=== PATIENT | female | born 1945 | race African-American/Black ===

== ENCOUNTER → 2016-02-14 | Outpatient (CLI) | payer MEDICARE, OTHER ==
--- NOTE | 2016-02-14 13:56 | MM ---
Reason for exam: clinical finding. Last mammogram was performed 1 year and 7 months ago. History: Patient is postmenopausal and has history of endometrial cancer at age 31. Family history of breast cancer in mother at age 57. Took hormonal contraceptives for 1 year beginning at age 20. Indicated problem(s): pain in the right breast. Physical Findings: Nurse did not find any significant physical abnormalities on exam. MG 3D Diag Mammo W/Cad SHERIE Bilateral CC and MLO view(s) were taken. Prior study comparison: July 16, 2014, bilateral MG diagnostic mammo w CAD SHERIE. December 18, 2013, bilateral MG screening mammo w CAD. There are scattered fibroglandular densities. No significant new findings when compared with previous films. These results were verbally communicated with the patient and result sheet given to the patient on 02/14/16. ASSESSMENT: Negative, BI-RAD 1 RECOMMENDATION: Routine screening mammogram of both breasts in 1 year. Manage patient on a clinical basis.
--- NOTE | 2016-02-17 11:53 | US ---
EXAMINATION TYPE: US axilla extremity RT DATE OF EXAM: 02/14/2016 1:32 PM COMPARISON: NONE CLINICAL HISTORY: US. Pain right axilla Findings: Multiple hypoechoic nodules noted within right axilla , largest = 4.5cm majority have hyper echoic central hilum. Most likely related to lymph node. IMPRESSION: 1. Multiple small hypoechoic nodules are nonspecific but likely related to lymph nodes. Correlate wit h CT of the chest as clinically warranted.
== END | disposition home or self-care (01) ==
LOC: RADMAMWWP 12:47
PROVIDERS: ATTEND Family Medicine
DX: N64.4 Mastodynia (principal); M79.621 Pain in right upper arm
CPT/HCPCS: 76882; G0204; G0279

== ENCOUNTER → 2016-02-15 | Outpatient (CLI) | payer MEDICARE, OTHER ==
[2016-02-15 14:23] LABS: ALT 32 U/L (9-52); AST 26 U/L (14-36); Alkaline Phosphatase 89 U/L (38-126); Anion Gap 12 mmol/L; Blood Urea Nitrogen 17 mg/dL (7-17); Carbon Dioxide 30 mmol/L (22-30); Chloride 100 mmol/L (98-107); Glucose 105 mg/dL (74-99); Non-African American GFR(MDRD) >60 (>60 ml/min/1.73 sqM); Phosphorous 3.7 mg/dL (2.5-4.5); Potassium 4.3 mmol/L (3.5-5.1); Sodium 142 mmol/L (137-145); Total Bilirubin 0.7 mg/dL (0.2-1.3)
== END | disposition home or self-care (01) ==
LOC: LABWHC1 13:08
PROVIDERS: ATTEND Internal Medicine
DX: I10 Essential (primary) hypertension (principal); E55.9 Vitamin D deficiency, unspecified
CPT/HCPCS: 36415; 80053; 82306; 83735; 84100

== ENCOUNTER → 2016-02-15 | Outpatient (CLI) | payer MEDICARE, OTHER ==
--- NOTE | 2016-02-15 14:23 | XR ---
EXAMINATION TYPE: XR chest 2V DATE OF EXAM: 02/15/2016 1:54 PM HISTORY: Chest pain. REFERENCE: Previous study dated 01/04/2016. FINDINGS: The lungs are clear. Pleural spaces are clear. Heart size is normal. IMPRESSION: NORMAL CHEST.
== END | disposition home or self-care (01) ==
LOC: RADXRMAIN 13:24
PROVIDERS: ATTEND Family Medicine
DX: R07.89 Other chest pain (principal)
CPT/HCPCS: 71020

== ENCOUNTER → 2016-03-23 | Outpatient (CLI) | payer MEDICARE, OTHER ==
[2016-03-26 15:01] LABS: Hepatits C Virus RNA, Quant <12 IU/mL (<12); LOG HCV IU/mL <1.08 (<1.08)
== END | disposition home or self-care (01) ==
LOC: LABWHC1 09:28
PROVIDERS: ATTEND Physician Assistant
DX: B18.2 Chronic viral hepatitis C (principal)
CPT/HCPCS: 36415; 87522

== ENCOUNTER → 2016-03-27 | Outpatient (CLI) | payer MEDICARE, OTHER ==
[2016-03-27 07:26] LABS: Bilirubin, Delta 0.2 mg/dL (0.0-0.2); Total Bilirubin 0.5 mg/dL (0.2-1.3); Total Protein 7.6 g/dL (6.3-8.2)
== END | disposition home or self-care (01) ==
LOC: LABWHC1 07:02
PROVIDERS: ATTEND Physician Assistant
DX: B18.2 Chronic viral hepatitis C (principal)
CPT/HCPCS: 36415; 80076

== ENCOUNTER 2016-03-28 11:07 | Day surgery (SDC) | payer MEDICARE, OTHER ==
[2016-03-28 11:57] VITALS: BP 124/64; PULSE 65; RESP 20; TEMP 97.4
--- NOTE | 2016-03-28 13:42 | US ---
Discontinued needle biopsy HISTORY: Axillary pain, adenopathy. Correlation to prior ultrasound axilla February 2016 Patient's prior ultrasound was reviewed, no evident adenopathy, small benign-appearing lymph nodes ar e present in the right axilla. No axillary adenopathy is evident. Patient states her pain has improved. ASSESSMENT: Benign nodes. Improvement in her pain Recommendation: Follow-up clinically, consider follow-up ultrasound to assess for any interval change in patient's axillary nodes.
== END 2016-03-28 11:50 | disposition home or self-care (01) ==
LOC: RADPROMAIN 11:07
PROVIDERS: ATTEND Surgery
DX: R59.0 Localized enlarged lymph nodes (principal); M79.629 Pain in unspecified upper arm
CPT/HCPCS: 76536

== ENCOUNTER → 2016-08-17 | Outpatient (CLI) | payer MEDICARE, OTHER ==
[2016-08-17 13:55] LABS: ALT 22 U/L (9-52); AST 25 U/L (14-36); Alkaline Phosphatase 70 U/L (38-126); Anion Gap 9 mmol/L; Blood Urea Nitrogen 19 mg/dL (7-17); Calcium 9.9 mg/dL (8.4-10.2); Carbon Dioxide 26 mmol/L (22-30); Chloride 105 mmol/L (98-107); Glucose 91 mg/dL (74-99); Magnesium 2.1 mg/dL (1.6-2.3); Non-African American GFR(MDRD) >60 (>60 ml/min/1.73 sqM); Phosphorous 3.3 mg/dL (2.5-4.5); Potassium 4.2 mmol/L (3.5-5.1); Sodium 140 mmol/L (137-145); Total Bilirubin 0.8 mg/dL (0.2-1.3); Total Protein 7.6 g/dL (6.3-8.2); Uric Acid 8.4 mg/dL (3.7-7.4)
[2016-08-17 14:20] LABS: Appearance,Urine Clear (Clear); Bilirubin,Urine Negative (Negative); Glucose,Urine (UA) Negative (Negative); Ketones,Urine Negative (Negative); Leukocyte Esterase,Urine Large (Negative); Nitrite,Urine Negative (Negative); PH, Urine 7.5 (5.0-8.0); Particle Count 1714; Protein,Urine Negative (Negative); RBC,Urine 1 /hpf (0-5); Specific Gravity,Urine 1.008 (1.001-1.035); Squamous Epithelial Cell,Urine 2 /hpf (0-4); UA Billing (MACRO vs. MICRO) MICRO; Urobilinogen,Urine <2.0 mg/dL (<2.0); WBC,Urine 1 /hpf (0-5)
== END | disposition home or self-care (01) ==
LOC: LABWHC1 12:58
PROVIDERS: ATTEND Internal Medicine
DX: I10 Essential (primary) hypertension (principal); N39.0 Urinary tract infection, site not specified; E21.3 Hyperparathyroidism, unspecified; E55.9 Vitamin D deficiency, unspecified; M10.9 Gout, unspecified
CPT/HCPCS: 36415; 80053; 81001; 82306; 83735; 83970; 84100; 84550; 87086

== ENCOUNTER → 2016-09-12 | Outpatient (CLI) | payer MEDICARE, OTHER ==
[2016-09-12 10:40] LABS: Bilirubin, Delta 0.2 mg/dL (0.0-0.2); Total Bilirubin 0.7 mg/dL (0.2-1.3); Total Protein 7.4 g/dL (6.3-8.2)
[2016-09-13 15:23] LABS: Hepatits C Virus RNA, Quant <12 IU/mL (<12); LOG HCV IU/mL <1.08 (<1.08)
== END | disposition home or self-care (01) ==
LOC: LABWHC1 09:14
PROVIDERS: ATTEND Physician Assistant
DX: B18.2 Chronic viral hepatitis C (principal)
CPT/HCPCS: 36415; 80076; 87522

== ENCOUNTER → 2016-09-19 | Outpatient (CLI) | payer MEDICARE, OTHER ==
--- NOTE | 2016-09-19 12:28 | XR ---
EXAMINATION TYPE: XR ankle complete LT DATE OF EXAM: 09/19/2016 COMPARISON: NONE HISTORY: Pain FINDINGS: Three views of the ankle demonstrate the ankle mortise to be intact and symmetric. Diffuse osteopenia noted. There is hypertrophic change is seen. Soft tissue edema noted. Calcaneal spurs are seen. Narr owing of the subtalar joint noted. IMPRESSION: 1. No definite acute fracture or dislocation, if symptoms persist follow-up study in 7 to 10 days wou ld be suggested. 2. Arthropathy of the subtalar joint. Correlate with MRI as clinically warranted.
== END | disposition home or self-care (01) ==
LOC: RADXRMAIN 11:46
PROVIDERS: ATTEND Physician Assistant
DX: M13.872 Other specified arthritis, left ankle and foot (principal)

== ENCOUNTER 2017-03-25 08:40 | Emergency (ER) | payer MEDICARE, OTHER ==
[2017-03-25 08:46] VITALS: BP 173/74; PULSE 68; RESP 18; TEMP 97.3
[2017-03-25] MEDS ORDERED: KETOROLAC 30 MG/ML 1 ML VIAL IM STA (09:03)
--- NOTE | 2017-03-25 09:07 | ED ---
General Adult HPI - General Source: patient, RN notes reviewed Mode of arrival: ambulatory Limitations: no limitations <Day Nicholas - Last Filed: 03/25/17 09:38> <Hari Sullivan - Last Filed: 03/25/17 09:44> - General Chief complaint: Extremity Problem,Nontraumatic Stated complaint: LEFT SIDE PAIN Time Seen by Provider: 03/25/17 08:58 - History of Present Illness Initial comments: 71 yo female presents to the ER with cc of left-sided hip pain. Patient states she's had this for about 3 weeks. It starts in her low by Dr. chandler brown and radiates into the left hip. There is no numbness and tingling. Patient states just feels sore. She does have arthritis everywhere and she states the chest is more intense. She denies any falls traumas or injuries to the hip. She denies a loss by bladder function she denies any saddle anesthesia. She states she was concerned due to just the continued aching type pain so she thought that she should be seen. She is able to move the hip she is able to walk like normal. She has a redness or irritation of the skin. Patient denies any recent fever, chills, shortness of breath, chest pain, back pain, abdominal pain, nausea vomiting, numbness or tingling, dysuria or hematuria, constipation or diarrhea, headaches or visual changes, or any other current symptoms. (Day Nicholas) - Related Data Home Medications Medication Instructions Recorded Confirmed Metoprolol Tartrate [Metoprolol 25 mg PO BID 07/13/14 03/25/17 Tartrate] Cholecalciferol [Vitamin D3] 2,000 unit PO DAILY 10/20/15 03/25/17 Hydrochlorothiazide [Hydrodiuril] 25 mg PO DAILY 03/20/16 03/25/17 Calcium Carbonate 500 mg PO BID 03/25/17 03/25/17 Lisinopril [Zestril] 5 mg PO DAILY 03/25/17 03/25/17 Previous Rx's Medication Instructions Recorded traMADol HCl [Ultram] 50 mg PO Q6H PRN #10 tab 03/25/17 Allergies Allergy/AdvReac Type Severity Reaction Status Date / Time Penicillins Allergy Rash/Hives Verified 03/25/17 08:55 Review of Systems ROS Other: All systems not noted in ROS Statement are negative. <Day Nicholas - Last Filed: 03/25/17 09:38> ROS Other: All systems not noted in ROS Statement are negative. <Hari Sullivan - Last Filed: 03/25/17 09:44> ROS Statement: Those systems with pertinent positive or pertinent negative responses have been documented in the HPI. Past Medical History Past Medical History: Hypertension Additional Past Medical History / Comment(s): hep c RECEIVED TREATMENT - states cleared, kidney stones History of Any Multi-Drug Resistant Organisms: None Reported Past Surgical History: Bladder Surgery, Hysterectomy, Tonsillectomy Additional Past Surgical History / Comment(s): eye surgery Past Anesthesia/Blood Transfusion Reactions: No Reported Reaction Past Psychological History: No Psychological Hx Reported Smoking Status: Former smoker Past Alcohol Use History: None Reported Past Drug Use History: None Reported - Past Family History Mother Family Medical History: Cancer Additional Family Medical History / Comment(s): breast cancer, brother lymphoma <Day Nicholas - Last Filed: 03/25/17 09:38> General Exam Limitations: no limitations General appearance: alert, in no apparent distress Head exam: Present: atraumatic, normocephalic, normal inspection Neck exam: Present: normal inspection. Absent: tenderness, meningismus, lymphadenopathy Respiratory exam: Present: normal lung sounds bilaterally. Absent: respiratory distress, wheezes, rales, rhonchi, stridor Cardiovascular Exam: Present: regular rate, normal rhythm, normal heart sounds. Absent: systolic murmur, diastolic murmur, rubs, gallop, clicks GI/Abdominal exam: Present: soft, normal bowel sounds. Absent: distended, tenderness, guarding, rebound, rigid Extremities exam: Present: normal inspection, full ROM, tenderness (Minimal to the left posterior hip), normal capillary refill. Absent: pedal edema, joint swelling, calf tenderness Back exam: Present: normal inspection. Absent: full ROM, tenderness, muscle spasm, paraspinal tenderness, vertebral tenderness, rash noted Neurological exam: Present: alert, oriented X3 Psychiatric exam: Present: normal affect, normal mood Skin exam: Present: warm, dry, intact, normal color. Absent: rash <Day Nicholas - Last Filed: 03/25/17 09:38> Course <Day Nicholas - Last Filed: 03/25/17 09:38> <Hari Sullivan - Last Filed: 03/25/17 09:44> Vital Signs 03/25/17 08:43 Temperature 97.3 F L Pulse Rate 68 Respiratory 18 Rate Blood Pressure 173/74 O2 Sat by Pulse 100 Oximetry - Reevaluation(s) Reevaluation #1: 03/25/17 09:43 PA supervision: I did proceed a [id number] evaluation the patient did discuss findings with her. She does have some reproducible tenderness palpation over the left SI region. No step-off or crepitation I do agree with the assessment and plan. (Hari Sullivan) Medical Decision Making - Radiology Data Radiology results: report reviewed, image reviewed <Day Nicholas - Last Filed: 03/25/17 09:38> <Hari Sullivan - Last Filed: 03/25/17 09:44> - Medical Decision Making 71-year-old female presents emergency Department chief complaint of left hip pain. This time patient's x-rays have been reviewed and we did discuss the results with her. This and we discussion stop with just giving on-call Dr. Jones's information. We did discuss return parameters all questions. We discussed close follow-up. We discussed use for pain control. We discussed all questions and return parameters. Patient stated that she understood and she is agreement this plan. All questions have been answered. She'll be discharged. (Day Nicholas) Disposition Time of Disposition: 09:39 <Day Nicholas - Last Filed: 03/25/17 09:38> <Hari Sullivan - Last Filed: 03/25/17 09:44> Clinical Impression: Left hip pain Disposition: HOME SELF-CARE Condition: Stable Instructions: Hip Pain (ED) Additional Instructions: Please use medication as discussed. Please follow up with family doctor if symptoms have not improved over the next two days. Please return to the emergency room if your symptoms increase or worsen or for any other concerns. Prescriptions: traMADol HCl [Ultram] 50 mg PO Q6H PRN #10 tab PRN Reason: Pain Referrals: Doug Dillon DO [Primary Care Provider] - 1-2 days
--- NOTE | 2017-03-25 09:24 | XR ---
EXAMINATION TYPE: XR Hip LT and AP Pelvis DATE OF EXAM: 03/25/2017 COMPARISON: NONE HISTORY: Pain TECHNIQUE: A single AP view of the pelvis is obtained. Two views of the left hip are obtained. FINDINGS: There is no acute fracture/dislocation evident in the pelvis. The hip and sacroiliac join ts appear symmetric and unremarkable. The overlying soft tissue appears unremarkable. Two views of left hip show no acute fracture or dislocation. No focal lytic or sclerotic lesion seen in the proximal left femur. The overlying soft tissue is unremarkable. There is concentric narrowi ng of the joint space bilaterally of the hips. Hypertrophic change of the acetabulum can be associate d with femoral acetabular impingement. IMPRESSION: 1. 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
--- NOTE | 2017-03-25 09:25 | XR ---
EXAM TYPE: LUMBAR SPINE X RAY SERIES COMPARISON: NONE HISTORY: Back pain TECHNIQUE: 4 views are submitted. FINDINGS: Alignment is anatomic. The pedicles are intact. The transverse processes are intact. There is no s pondylolysis or spondylolisthesis. Severe degenerative disc disease L5-S1 with facet arthropathy. Mi ld to moderate degenerative disc disease L4-L5. Facet arthropathy at levels L2-S1. Surgical clip over lying the left sacrum. IMPRESSION: 1. Severe degenerative disc disease L5-S1 with vacuum disc and probable foraminal encroachment. Recom mend follow-up MRI.
== END 2017-03-25 10:14 | disposition home or self-care (01) ==
LOC: EC 08:40
DX: M25.552 Pain in left hip (principal); I10 Essential (primary) hypertension; Z87.891 Personal history of nicotine dependence; Z88.0 Allergy status to penicillin; Z79.899 Other long term (current) drug therapy
CPT/HCPCS: 72100; 73502; 99283; 96372; J1885

== ENCOUNTER 2017-03-27 07:09 | Emergency (ER) | payer MEDICARE, OTHER ==
[2017-03-27 07:18] VITALS: TEMP 97.5
[2017-03-27 08:22] LABS: Basophils % (A) 0 %; Eosinophils # (A) 0.1 k/uL (0-0.7); Eosinophils % (A) 2 %; HCT 42.8 % (34.0-46.0); HGB 13.5 gm/dL (11.4-16.0); Lymphocytes # (A) 2.2 k/uL (1.0-4.8); Lymphocytes % (A) 35 %; MCH 29.9 pg (25.0-35.0); MCHC 31.5 g/dL (31.0-37.0); MCV 94.8 fL (80.0-100.0); Mean Platelet Volume 7.8; Monocytes # (A) 0.4 k/uL (0-1.0); Monocytes % (A) 6 %; Neutrophils # (A) 3.4 k/uL (1.3-7.7); Neutrophils % (A) 55 %; Platelet Count 207 k/uL (150-450); RBC 4.52 m/uL (3.80-5.40); RDW 11.9 % (11.5-15.5); WBC 6.3 k/uL (3.8-10.6)
[2017-03-27 08:28] LABS: Appearance,Urine Clear (Clear); Bilirubin,Urine Negative (Negative); Blood,Urine Trace (Negative); Color,Urine Light Yellow; Glucose,Urine (UA) Negative (Negative); Ketones,Urine Negative (Negative); Leukocyte Esterase,Urine Large (Negative); Mucus,Urine Rare /hpf; Nitrite,Urine Negative (Negative); PH, Urine 6.5 (5.0-8.0); Protein,Urine Negative (Negative); RBC,Urine 7 /hpf (0-5); Specific Gravity,Urine 1.007 (1.001-1.035); Squamous Epithelial Cell,Urine 5 /hpf (0-4); Urobilinogen,Urine <2.0 mg/dL (<2.0); WBC,Urine 9 /hpf (0-5)
[2017-03-27 08:43] LABS: Anion Gap 11 mmol/L; Blood Urea Nitrogen 17 mg/dL (7-17); Calcium 9.6 mg/dL (8.4-10.2); Carbon Dioxide 26 mmol/L (22-30); Chloride 108 mmol/L (98-107); Glucose 114 mg/dL (74-99); Sodium 145 mmol/L (137-145)
--- NOTE | 2017-03-27 09:10 | ED ---
Female Urogenital HPI - General Chief complaint: Urogenital Stated complaint: Back pain Time Seen by Provider: 03/27/17 07:38 Source: patient Mode of arrival: ambulatory Limitations: no limitations - History of Present Illness Initial comments: 71 years O female presented with dysuria frequency and urgency also feels she is bloated and she is feels pressure in the suprapubic area, denies any fever no chills does have a dysuria. She is also complaining about ongoing telma pain and ongoing back pain she was seen in the ER a few days ago she had the left hip x-ray and she had a lumbar spine x-ray both those reports are reviewed and she was also aware of those she denies any recent fall or trauma to the back - Related Data Home Medications Medication Instructions Recorded Confirmed Metoprolol Tartrate [Metoprolol 25 mg PO BID 07/13/14 03/27/17 Tartrate] Cholecalciferol [Vitamin D3] 2,000 unit PO DAILY 10/20/15 03/27/17 Hydrochlorothiazide [Hydrodiuril] 25 mg PO DAILY 03/20/16 03/27/17 Calcium Carbonate 500 mg PO BID 03/25/17 03/27/17 Lisinopril [Zestril] 5 mg PO DAILY 03/25/17 03/27/17 Previous Rx's Medication Instructions Recorded traMADol HCl [Ultram] 50 mg PO Q6H PRN #10 tab 03/25/17 Ciprofloxacin HCl [Cipro] 500 mg PO Q12HR #14 tablet 03/27/17 Allergies Allergy/AdvReac Type Severity Reaction Status Date / Time Penicillins Allergy Rash/Hives Verified 03/27/17 07:47 Review of Systems ROS Statement: Those systems with pertinent positive or pertinent negative responses have been documented in the HPI. ROS Other: All systems not noted in ROS Statement are negative. Past Medical History Past Medical History: Hypertension Additional Past Medical History / Comment(s): hep c RECEIVED TREATMENT - states cleared, kidney stones History of Any Multi-Drug Resistant Organisms: None Reported Past Surgical History: Bladder Surgery, Hysterectomy, Tonsillectomy Additional Past Surgical History / Comment(s): eye surgery Past Anesthesia/Blood Transfusion Reactions: No Reported Reaction Past Psychological History: No Psychological Hx Reported Smoking Status: Former smoker Past Alcohol Use History: None Reported Past Drug Use History: None Reported - Past Family History Mother Family Medical History: Cancer Additional Family Medical History / Comment(s): breast cancer, brother lymphoma General Exam - General Exam Comments Initial Comments: General: The patient is awake and alert, in no distress, and does not appear acutely ill. Skin: Skin is warm and dry and no rashes or lesions are noted. Eye: Pupils are equal, round and reactive to light, extra-ocular movements are intact; there is normal conjunctiva bilaterally. Ears, nose, mouth and throat: There are moist mucous membranes and no oral lesions. Neck: The neck is supple, there is no tenderness or JVD. Cardiovascular: There is a regular rate and rhythm. No murmur, rub or gallop is appreciated. Respiratory: To auscultation bilateral, no wheezing no rhonchi no distress respiratory mosquera noticed Gastrointestinal: Soft nontender bowel sounds are positive no guarding or rebounds Back: There is no tenderness to palpation in the midline. There is no obvious deformity. Musculoskeletal: Normal ROM, no tenderness, There is no pedal edema. There is no calf tenderness or swelling. No cords were appreciated. Neurological: CN II-XII intact, Cranial nerves III through XII are intact. There are no obvious motor or sensory deficits. Coordination appears grossly intact. Speech is normal. Psychiatric: Cooperative, appropriate mood & affect, normal judgment. Limitations: no limitations Course Vital Signs 03/27/17 07:16 Temperature 97.5 F L Pulse Rate 68 Respiratory 16 Rate Blood Pressure 171/83 O2 Sat by Pulse 100 Oximetry She was reassessed at 10:19 AM, labs are reviewed her blood pressure was slightly elevated CBC is normal white count is absolutely within normal range. In her current urinalysis is consistent with the UTI she be gone home on Cipro 500 mg twice daily #14 and she'll follow-up with her family doctor as far as her lumbar spine pain on the pain she would benefit from an outpatient imaging Medical Decision Making - Lab Data Result diagrams: 03/27/17 08:10 03/27/17 08:10 Lab Results 03/27/17 03/27/17 03/27/17 Range/Units 08:10 08:10 08:10 WBC 6.3 (3.8-10.6) k/uL RBC 4.52 (3.80-5.40) m/uL Hgb 13.5 (11.4-16.0) gm/dL Hct 42.8 (34.0-46.0) % MCV 94.8 (80.0-100.0) fL MCH 29.9 (25.0-35.0) pg MCHC 31.5 (31.0-37.0) g/dL RDW 11.9 (11.5-15.5) % Plt Count 207 (150-450) k/uL Neutrophils % 55 % Lymphocytes % 35 % Monocytes % 6 % Eosinophils % 2 % Basophils % 0 % Neutrophils # 3.4 (1.3-7.7) k/uL Lymphocytes # 2.2 (1.0-4.8) k/uL Monocytes # 0.4 (0-1.0) k/uL Eosinophils # 0.1 (0-0.7) k/uL Basophils # 0.0 (0-0.2) k/uL Sodium 145 (137-145) mmol/L Potassium 4.0 (3.5-5.1) mmol/L Chloride 108 H (98-107) mmol/L Carbon Dioxide 26 (22-30) mmol/L Anion Gap 11 mmol/L BUN 17 (7-17) mg/dL Creatinine 0.76 (0.52-1.04) mg/dL Est GFR (MDRD) Af Amer >60 (>60 ml/min/1.73 sqM) Est GFR (MDRD) Non-Af >60 (>60 ml/min/1.73 sqM) Glucose 114 H (74-99) mg/dL Calcium 9.6 (8.4-10.2) mg/dL Urine Color Light Yellow Urine Appearance Clear (Clear) Urine pH 6.5 (5.0-8.0) Ur Specific [place] 1.007 (1.001-1.035) Urine Protein Negative (Negative) Urine Glucose (UA) Negative (Negative) Urine Ketones Negative (Negative) Urine Blood Trace H (Negative) Urine Nitrite Negative (Negative) Urine Bilirubin Negative (Negative) Urine Urobilinogen <2.0 (<2.0) mg/dL Ur Leukocyte Esterase Large H (Negative) Urine RBC 7 H (0-5) /hpf Urine WBC 9 H (0-5) /hpf Ur Squamous Epith Cells 5 H (0-4) /hpf Urine Mucus Rare H (None) /hpf Disposition Clinical Impression: Cystitis Disposition: HOME SELF-CARE Condition: Good Instructions: Urinary Tract Infection in Women (ED) Prescriptions: Ciprofloxacin HCl [Cipro] 500 mg PO Q12HR #14 tablet Referrals: Doug Dillon DO [Primary Care Provider] - 1-2 days
[2017-03-27] MEDS ORDERED: CIPROFLOXACIN HCL 500 MG TAB PO STA (09:14)
[2017-03-27 09:44] VITALS: BP 147/76; PULSE 62; RESP 18
== END 2017-03-27 09:44 | disposition home or self-care (01) ==
LOC: EC 07:09
DX: N30.90 Cystitis, unspecified without hematuria (principal); M54.9 Dorsalgia, unspecified; I10 Essential (primary) hypertension; Z87.891 Personal history of nicotine dependence; Z88.0 Allergy status to penicillin; Z79.899 Other long term (current) drug therapy; Z98.890 Other specified postprocedural states
CPT/HCPCS: 36415; 80048; 81001; 85025; 99283

== ENCOUNTER → 2017-04-04 | Outpatient (CLI) | payer MEDICARE, OTHER ==
--- NOTE | 2017-04-08 07:57 | MM ---
Reason for exam: screening (asymptomatic). Last mammogram was performed 1 year and 2 months ago. History: Patient is postmenopausal and has history of endometrial cancer at age 31. Family history of breast cancer in mother at age 57. Took hormonal contraceptives for 1 year beginning at age 20. Physical Findings: A clinical breast exam by your physician is recommended on an annual basis and results should be correlated with mammographic findings. MG 3D Screening Mammo W/Cad Bilateral CC and MLO view(s) were taken. Prior study comparison: February 14, 2016, bilateral MG 3d diag mammo w/cad SHERIE. July 16, 2014, bilateral MG diagnostic mammo w CAD SHERIE. There are scattered fibroglandular densities. No significant changes when compared with prior studies. ASSESSMENT: Benign, BI-RAD 2 RECOMMENDATION: Routine screening mammogram of both breasts in 1 year.
== END | disposition home or self-care (01) ==
LOC: RADMAMWWP 13:12
PROVIDERS: ATTEND Family Medicine
DX: Z12.31 Encounter for screening mammogram for malignant neoplasm of breast (principal)
CPT/HCPCS: 77063; 77067

== ENCOUNTER → 2017-09-10 | Outpatient (CLI) | payer MEDICARE, OTHER ==
[2017-09-10 11:42] LABS: Albumin 3.9 g/dL (3.5-5.0); Bilirubin, Delta 0.3 mg/dL (0.0-0.2); Bilirubin,Unconjugated 0.3 mg/dL (0.0-1.1); Total Bilirubin 0.6 mg/dL (0.2-1.3)
[2017-09-11 16:09] LABS: Hepatits C Virus RNA Not detected (Not detected); Hepatits C Virus RNA, Quant <12 IU/mL (<12); LOG HCV IU/mL <1.08 (<1.08)
== END | disposition home or self-care (01) ==
LOC: LABWHC1 10:55
PROVIDERS: ATTEND Physician Assistant
DX: B18.2 Chronic viral hepatitis C (principal)
CPT/HCPCS: 36415; 80076; 82105; 87522

== ENCOUNTER → 2017-09-12 | Outpatient (CLI) | payer MEDICARE, OTHER ==
--- NOTE | 2017-09-12 13:57 | USB ---
Reason for exam: clinical finding. History: Patient is postmenopausal and has history of endometrial cancer at age 31. Family history of breast cancer in mother at age 57. Took hormonal contraceptives for 1 year beginning at age 20. Indicated problem(s): pain in the right breast. Physical Findings: Nurse Summary: pain comes and goes x 2 months (nurse kp). US Breast RT Right complete breast ultrasound includes all four quadrants, the retroareolar region and axilla. Finding demonstrates no cystic or solid lesion seen. Right axilla node is seen measuring 1.0 x 1.8 x 0.7cm. These results were verbally communicated with the patient and result sheet given to the patient on 09/12/17. ASSESSMENT: Negative, BI-RAD 1 RECOMMENDATION: Return to routine screening mammogram schedule for both breasts. Back on schedule for March 2017. Manage on a clinical basis with regard to right breast pain.
== END | disposition home or self-care (01) ==
LOC: RADUSWWP 09:28
PROVIDERS: ATTEND Family Medicine
DX: N64.4 Mastodynia (principal)

== ENCOUNTER → 2017-09-12 | Outpatient (CLI) | payer MEDICARE, OTHER ==
--- NOTE | 2017-09-12 11:42 | US ---
EXAMINATION TYPE: US kidneys/renal and bladder DATE OF EXAM: 09/12/2017 COMPARISON: CT, US CLINICAL HISTORY: N28.1 Rt Renal Cyst. EXAM MEASUREMENTS: Right Kidney: 10.0 x 6.1 x 4.5 cm Left Kidney: 10.2 x 4.6 x 4.3 cm Post Void Residual Volume: 36.4 mL Right Kidney: cyst noted mid to inferior pole = 1.7 x 2.2 x 2.7cm Left Kidney: No hydronephrosis or masses seen Bladder: wnl Bilateral Jets seen: Yes Normal Post Void Residual: yes IMPRESSION: 1. Simple appearing right renal cyst.
== END | disposition home or self-care (01) ==
LOC: RADUSWWP 09:25
PROVIDERS: ATTEND Internal Medicine Nephrology
DX: N28.1 Cyst of kidney, acquired (principal)
CPT/HCPCS: 76770

== ENCOUNTER → 2017-09-19 | Outpatient (CLI) | payer MEDICARE, OTHER ==
[2017-09-19 09:49] VITALS: BP 116/73; PULSE 63; RESP 14; TEMP 98.5; BMI 35.3
--- NOTE | 2017-09-19 10:16 | P.GSHP ---
History of Present Illness H&P Date: 09/19/17 Patient is a 71 year old black female with a complaint of pain in her right breast. The last time she had pain was several weeks ago. The pain is from the lateral aspect of the breast and radiates to the nipple. It is a mild pain and is fleeting. The pain is very sporadic. The patient states it has occurred twice. She has no painin the left breast. She had a mammogram done on 04/04/2017. This showed scattered fibroglandular densities. It was BIRADS 2. Routine screening of both breasts in 1 year was recommended. On 09-28 she had an ultrasound of the right breast and axilla. This showed a right axillary node measuring 1.8 cm in size. Within the breast were no lesions of concern. This was felt to be negative and return to routine screening of both breast was recommended. The patient does not feel any lumps in her breast at this time. She has no pain in her breast at this time. She has no nipple discharge or changes of concern. The patient does drink at least 1 cup of strong coffee a day. Additionally she does drink franchesca on occasion. She eats chocolate. She does not smoke and is not exposed to secondhand smoke. Family history: Mother: Breast cancer at 57 maternal grandmother: leukemia Hormonal history: menarche: 15 : 3, 3 children, breast fed: no first at 20 menopause: 31 hysterectomy secondary to cervical cancer, took ovaries, had hot flashes for about 5 years control pills: 7 years Hormones: Negative Past Surgical History: 1. HI 2. Cholecystectomy 3. Tonsillectomy 4. Cataract surgery Past medical history: 1. HTN 2. Hepatitis C Smoke: none Alcohol: None Drugs: None - Constitutional Constitutional: Denies chills, Denies fever - EENT Eyes: denies blurred vision, denies pain Ears: deny: decreased hearing, tinnitus Ears, nose, mouth and throat: Denies headache, Denies sore throat - Breasts Breasts: bilateral: as per HPI - Cardiovascular Cardiovascular: Reports high blood pressure - Respiratory Respiratory: Denies cough, Denies 7 - Gastrointestinal Gastrointestinal: Denies abdominal pain, Denies diarrhea, Denies nausea, Denies vomiting - Genitourinary (Female) Genitourinary: Denies dysuria, Denies hematuria - Menstruation Menstruation: Reports post hysterectomy - Musculoskeletal Comment: arthritis Musculoskeletal: Denies myalgias - Integumentary Integumentary: Denies pruritus, Denies rash - Neurological Neurological: Denies numbness, Denies weakness - Psychiatric Psychiatric: Denies anxiety, Denies depression - Endocrine Endocrine: Denies fatigue, Denies weight change - Hematologic/Lymphatic Comment: none - Allergic/Immunologic Comment: none Past Medical History Past Medical History: Hypertension Additional Past Medical History / Comment(s): hep c RECEIVED TREATMENT - states cleared, kidney stones History of Any Multi-Drug Resistant Organisms: None Reported Past Surgical History: Bladder Surgery, Hysterectomy, Tonsillectomy Additional Past Surgical History / Comment(s): eye surgery Past Anesthesia/Blood Transfusion Reactions: No Reported Reaction Smoking Status: Former smoker - Past Family History Mother Family Medical History: Cancer Additional Family Medical History / Comment(s): breast cancer, brother lymphoma Medications and Allergies Home Medications Medication Instructions Recorded Confirmed Type Metoprolol Tartrate 25 mg PO BID 07/13/14 09/19/17 History Cholecalciferol [Vitamin D3] 2,000 unit PO QMONTH 10/20/15 09/19/17 History Hydrochlorothiazide [Hydrodiuril] 25 mg PO DAILY 03/20/16 09/19/17 History Calcium Carbonate 500 mg PO BID 03/25/17 09/19/17 History Lisinopril [Zestril] 5 mg PO DAILY 03/25/17 09/19/17 History traMADol HCl [Ultram] 50 mg PO Q6H PRN #10 tab 03/25/17 09/19/17 Rx Allergies Allergy/AdvReac Type Severity Reaction Status Date / Time Penicillins Allergy Rash/Hives Verified 09/19/17 09:41 Surgical - Exam Vital Signs Temp Pulse Resp BP Pulse Ox 98.5 F 63 14 116/73 99 09/19/17 09:45 09/19/17 09:45 09/19/17 09:45 09/19/17 09:45 09/19/17 09:45 - General well developed, well nourished, no distress - Eyes normal ocular movement, no icteric - ENT no hearing loss, no congestion - Neck no masses, trachea midline - Respiratory normal respiratory effort, clear to auscultation - Cardiovascular Rhythm: regular Heart Sounds: normal: S1, S2 - Abdomen Abdomen: soft, non tender, no guarding, no rigid, no rebound - Neurologic no disoriented, no combative - Musculoskeletal normal gait, normal posture - Psychiatric oriented to time, oriented to person, oriented to place, speech is normal, memory intact Breast examination: Right breast: Multiple positional exam no discrete masses or nodules of concern Right axilla: No discrete adenopathy of concern Left breast: No dominant masses or nodules of concern a multi-positional exam Left axilla: No adenopathy of concern Results Mammogram and ultrasound results reviewed Assessment and Plan Assessment: Impression/plan: 1. Fibrocystic breast changes 2. Hypertension 3. Right breast mastodynia appears to be resolved seems to be related to high caffeine intake Plan: 1. Repeat bilateral diagnostic mammogram in March 2018 2. Medical management of hypertension 3. We will discuss caffeine intake and relationship to mastodynia and the patient will make a decision as to what she wishes to do with respect to this 4. Patient's ultrasound did reveal a 1.8 cm node in the right axilla this will be reviewed with radiology further recommendation if there is any concern to follow with respect to this Cc: Dr. Dillon
== END | disposition home or self-care (01) ==
LOC: WWCWWP 09:26
PROVIDERS: ATTEND Surgery
DX: Z53.9 Procedure and treatment not carried out, unspecified reason (principal)

== ENCOUNTER → 2018-03-20 | Outpatient (CLI) | payer MEDICARE, OTHER ==
--- NOTE | 2018-03-20 09:01 | MM ---
Reason for exam: additional evaluation requested from prior study. Last mammogram was performed 11 months ago. History: Patient is postmenopausal and has history of endometrial cancer at age 31. Family history of breast cancer in mother at age 57. Took hormonal contraceptives for 1 year beginning at age 20. Physical Findings: Nurse did not find any significant physical abnormalities on exam. MG 3D Diag Mammo W/Cad SHERIE Bilateral CC and MLO view(s) were taken. Prior study comparison: April 04, 2017, bilateral MG 3d screening mammo w/cad. February 14, 2016, bilateral MG 3d diag mammo w/cad SHERIE. The breast tissue is heterogeneously dense. This may lower the sensitivity of mammography. Stable benign calcifications. There is no discrete abnormality. No significant new findings when compared with previous films. These results were verbally communicated with the patient and result sheet given to the patient on 03/20/18. ASSESSMENT: Benign, BI-RAD 2 RECOMMENDATION: Routine screening mammogram of both breasts in 1 year.
== END | disposition home or self-care (01) ==
LOC: RADMAMWWP 08:18
PROVIDERS: ATTEND Surgery
DX: R92.8 Other abnormal and inconclusive findings on diagnostic imaging of breast (principal)
CPT/HCPCS: 77066; G0279; 77062

== ENCOUNTER → 2018-03-20 | Outpatient (CLI) | payer MEDICARE, OTHER ==
[2018-03-20 09:03] VITALS: BP 140/74; PULSE 61; RESP 18; TEMP 96.6; BMI 36.0
--- NOTE | 2018-03-20 09:26 | P.GSHP ---
History of Present Illness H&P Date: 03/20/18 Chief Complaint: breast exam Jg is a 72 year old black female with a primary complaint of discomfort in her right breast. The patient states at this time she is not having discomfort in either breast. The patient has no history of any lumps in her breasts. She has not had any breast surgery. She has no complaints of any trauma or infection in the breast. She did have a routine mammogram performed today. In September 2017 she was noted to have a 1.8 cm lymph node on the right side which was felt to be benign and routine surveillance was recommended. She does not feel any swelling under her arms. The patient has stopped drinking coffee every day which she used to do. Family history: 1. Mother breast cancer at 57 2. Maternal grandmother with leukemia 3. patient cervical cancer Hormonal history: Menarche: 15 Pregnancies: 3, 3 children, breast fed: Her first was at 20 Menopause: 31 hysterectomy secondary to cervical cancer be to control flatus as well she had hot flashes for about 5 years Brief control pills: 7 years Hormones: Negative Past surgical history: 1. Total abdominal hysterectomy 2. Cholecystectomy 3. Tonsillectomy 4. Cataract surgery Past medical history: 1. Hypertension 2. Hepatitis C Social history: Smoke: Negative Alcohol: Negative Drugs: Negative - Constitutional Constitutional: Denies chills, Denies fever - EENT Eyes: denies blurred vision, denies pain Ears: deny: decreased hearing, tinnitus Ears, nose, mouth and throat: Denies headache, Denies sore throat - Breasts Breasts: bilateral: as per HPI - Cardiovascular Cardiovascular: Reports high blood pressure, Denies chest pain, Denies shortness of breath - Respiratory Respiratory: Denies cough, Denies 7 - Gastrointestinal Gastrointestinal: Denies abdominal pain, Denies diarrhea, Denies nausea, Denies vomiting - Genitourinary (Female) Genitourinary: Denies dysuria, Denies hematuria - Menstruation Menstruation: Reports post hysterectomy - Musculoskeletal Comment: arthritis Musculoskeletal: Denies myalgias - Integumentary Integumentary: Denies pruritus, Denies rash - Neurological Neurological: Denies numbness, Denies weakness - Psychiatric Psychiatric: Denies anxiety, Denies depression - Endocrine Endocrine: Denies fatigue, Denies weight change - Hematologic/Lymphatic Comment: none - Allergic/Immunologic Comment: none Past Medical History Past Medical History: Hypertension Additional Past Medical History / Comment(s): hep c RECEIVED TREATMENT - states cleared, kidney stones History of Any Multi-Drug Resistant Organisms: None Reported Past Surgical History: Hysterectomy, Tonsillectomy Additional Past Surgical History / Comment(s): eye surgery Past Anesthesia/Blood Transfusion Reactions: No Reported Reaction Past Psychological History: No Psychological Hx Reported Smoking Status: Former smoker Past Alcohol Use History: None Reported Past Drug Use History: None Reported - Past Family History Mother Family Medical History: Cancer Additional Family Medical History / Comment(s): breast cancer, brother lymphoma Medications and Allergies Home Medications Medication Instructions Recorded Confirmed Type Metoprolol Tartrate 25 mg PO BID 07/13/14 09/19/17 History Cholecalciferol [Vitamin D3] 2,000 unit PO QMONTH 10/20/15 09/19/17 History Hydrochlorothiazide [Hydrodiuril] 25 mg PO DAILY 03/20/16 09/19/17 History Calcium Carbonate 500 mg PO BID 03/25/17 09/19/17 History Lisinopril [Zestril] 5 mg PO DAILY 03/25/17 09/19/17 History traMADol HCl [Ultram] 50 mg PO Q6H PRN #10 tab 03/25/17 09/19/17 Rx Allergies Allergy/AdvReac Type Severity Reaction Status Date / Time Penicillins Allergy Rash/Hives Verified 09/19/17 09:41 Surgical - Exam Vital Signs Temp Pulse Resp BP Pulse Ox 96.6 F L 61 18 140/74 97 03/20/18 08:56 03/20/18 08:56 03/20/18 08:56 03/20/18 08:56 03/20/18 08:56 BMI 36 - General obese - Eyes normal ocular movement - ENT no hearing loss, no congestion - Neck no masses, trachea midline - Respiratory normal respiratory effort, clear to auscultation - Cardiovascular Rhythm: regular Heart Sounds: normal: S1, S2 - Abdomen Abdomen: soft, non tender, no guarding, no rigid, no rebound - Integumentary normal turgor - Neurologic no disoriented, no combative - Musculoskeletal normal gait, normal posture - Psychiatric oriented to time, oriented to person, oriented to place, speech is normal, memory intact Breast examination: Right breast: Multi-positional exam no dominant masses or nodules of concern, fibrocystic changes Right axilla: No adenopathy of concern Left breast: Multiple positional exam no dominant masses or nodules of concern, fibrocystic changes Left axilla: No adenopathy of concern Results The patient underwent bilateral mammogram on 2718. This did not show any specific lesions of concern and she was recommended to undergo repeat bilateral mammogram in 1 year. I additionally we reviewed her ultrasound of September 2017 and the lymph node identified was felt to be benign. It was not felt that she needed further radiographic evaluation of this area particularly in view of the fact that nothing was noted palpable on clinical exam. Assessment and Plan Assessment: Impression: 1. Bilateral fibrocystic breast changes 2. Hypertension 3. Resolved axillary adenopathy 4. Resolved mastodynia Plan: 1. Bilateral mammogram in 1 year 2. Patient to call immediately if any questions of concern Cc: Dr. Dillon
== END ==
LOC: WWCWWP 08:22
PROVIDERS: ATTEND Surgery
DX: Z53.9 Procedure and treatment not carried out, unspecified reason (principal)